=== PATIENT | female | born 2000 | race Caucasian/White ===

== ENCOUNTER 2024-09-11 16:11 | Emergency (ER) | payer MEDICAID, SELFPAY ==
[2024-09-11 16:12] VITALS: BMI 31.7
--- NOTE | 2024-09-11 16:13 | EKG_ITS ---
[facility] [place] [facility] Test Date: 2024-09-11 Pat Name: ENA DIETZ Department: Room: - Gender: Female [employer]: : 2000 Requested By: ED Temporary Provider Order Number: [id number] Reading MD: ED Temporary Provider Measurements Intervals [place] Rate: 76 P: 47 IN: 140 QRS: 60 QRSD: 86 T: 37 QT: 344 QTc: 388 Interpretive Statements SINUS RHYTHM WITH SINUS ARRHYTHMIA MODERATE T-WAVE ABNORMALITY, CONSIDER ANTERIOR ISCHEMIA [-0.1+ mV T-WAVE IN V3/V4] No previous ECG available for comparison /store/S0/[id number].pdf
[2024-09-11 16:28] VITALS: BP 101/70; PULSE 72; RESP 16; TEMP 37.1; O2SAT 97
--- NOTE | 2024-09-11 16:59 | XR_ITS ---
Examination: PA lateral chest 2 views. TECHNIQUE: Upright PA and lateral chest 2 views. Date and time: August 22, 2024, 1705 hours INDICATIONS: Cardiac palpitations beginning 2 days ago. FINDINGS: Normal heart size. Lungs are clear. The osseous structures are intact IMPRESSION: No active disease.
--- NOTE | 2024-09-11 17:00 | PD.EDRME ---
Rapid Medical Screening Exam RME Arrival date/time: 09/11/24 16:11 This is a 24-year-old female with complaints of rapid heartbeat and palpitations prior to arrival. Patient states that she felt her heart and it was beating very fast. Patient states it comes and goes. Patient denies any shortness of breath. Patient denies any drug use alcohol use and only drinks coffee. I have greeted and performed a focused initial assessment of this patient. Initial appropriate labs ordered at this time. A comprehensive ED assessment and evaluation of the patient and analysis of all test and completion of medical decision making process will be conducted by additional ED provider. Chief Complaint: Arrhythmia/Palpitations Time Seen by Provider: 09/11/24 16:18 Vital signs: Vital Signs Temperature 98.7 F 09/11/24 16:28 Pulse Rate 72 09/11/24 16:28 Respiratory Rate 16 09/11/24 16:28 Blood Pressure 101/70 09/11/24 16:28 Pulse Oximetry (%) 97 09/11/24 16:28 Oxygen Delivery Method Room Air 09/11/24 16:28
[2024-09-11 17:49] LABS: Basophils # (Auto) 0.1 Thou/mm3 (0.0-0.2); Basophils % (Auto) 1 % (0-2.5); Eosinophils # (Auto) 0.2 Thou/mm3 (0.0-0.5); Eosinophils % (Auto) 2 % (0-10); Hematocrit 38.8 % (36.0-46.0); Hemoglobin 13.1 g/dL (12.0-16.0); Immature Granulocytes % (Auto) 1 % (0-0); Immature Granulocytes Auto 0.07 Thou/mm3 (0.00-0.00); Lymphocytes # (Auto) 3.1 Thou/mm3 (1.0-4.8); Lymphocytes % (Auto) 35 % (10-50); Mean Corpuscular HGB Conc 33.8 g/dl (31.0-37.0); Mean Corpuscular Hemoglobin 28.7 pg (25.0-35.0); Mean Corpuscular Volume 85 fL (80-100); Monocytes # (Auto) 0.8 Thou/mm3 (0.0-0.8); Monocytes % (Auto) 9 % (0-12); Neutrophils # (Auto) 4.5 Thou/mm3 (1.8-7.7); Neutrophils % (Auto) 52 % (37-80); Nucleated Red Blood Cell % 0 /100 WBC (0); Platelet Count 292 Thou/mm3 (140-440); RDW Standard Deviation 42.3 fL (36.4-46.3); Red Blood Count 4.57 Miln/mm3 (4.00-5.20); White Blood Count 8.8 Thou/mm3 (3.6-11.0)
[2024-09-11 17:59] LABS: Collection Type, Urine Voided
[2024-09-11 18:06] LABS: Bilirubin,Urine Negative (Negative); Blood,Urine Negative (Negative); Clarity,Urine Clear (Clear/Hazy); Color,Urine Lt-Yellow (Lt Yel-Yel); Culture Indicated,Urine Not Indicated; Glucose, Urine Negative (Negative); Ketones,Urine Negative (Negative); Leukocyte Esterase,Urine Negative (Negative); Nitrite,Urine Negative (Negative); Protein,Urine Negative (Neg - Trace); RBC,Urine 3 /hpf (0-3); Specific Gravity,Urine 1.025 (1.001-1.035); Squamous Epithelial Cell,Urine 1 /hpf (0-5); Urobilinogen,Urine Negative mg/dL (0.0-1.0); WBC,Urine 1 /hpf (0-5)
[2024-09-11 18:09] LABS: Alanine Aminotransferase 23 U/L (10-49); Albumin, Serum 4.4 gm/dL (3.5-5.0); Albumin/Globulin Ratio 1.5 (1.2-2.2); Alkaline Phosphatase 72 U/L (46-116); Anion Gap 5 (7-16); Aspartate Amino Transferase 20 U/L (0-34); BUN/Creatinine Ratio 12 Ratio (12-20); Bilirubin,Total 0.3 mg/dL (0.3-1.2); Blood Urea Nitrogen 11 mg/dL (9-23); Calcium 9.3 mg/dL (8.3-10.6); Calcium (Corrected) 9.3 mg/dL (8.5-10.1); Chloride 107 mMol/L (98-107); Creatinine (Component) 0.9 mg/dL (0.6-1.3); Estimated Creatinine Clearance 99.3 mL/min (>60); Globulin 2.9 gm/dL (2.3-3.5); Glucose 97 mg/dL (74-106); Osmolality,Calculated 278 (275-295); Sodium 140 mMol/L (136-145); Thyroid Stimulating Hormone 1.57 uIU/mL (0.55-4.78); Total Protein 7.3 gm/dL (5.7-8.2); Troponin I < 0.002 ng/mL (0.0-0.045); eGFR > 60 See Note
[2024-09-11 18:09] LABS: HCG Qualitative,Urine Negative
[2024-09-11 19:03] LABS: Amphetamine/Methamp Scrn,U Negative (Negative); Barbiturate Screen,Urine Negative (Negative); Benzodiazepines Screen,Urine Negative (Negative); Benzoylecgonine Screen, Ur Negative (Negative); Fentanyl Screen,Urine Negative (Negative); Opiate Screen,Urine Negative (Negative); THC Screen,Urine Negative (Negative)
[2024-09-11 19:54] VITALS: RESP 16
--- NOTE | 2024-09-11 19:58 | PD.EDARRY ---
ED Arrhythmia Palp. RME/HPI General Chief Complaint: Arrhythmia/Palpitations Stated Complaint: PALPITATIONS ON/OFF SINCE LAST NIGHT Time Seen by Provider: 09/11/24 16:18 Arrival date/time: 09/11/24 16:11 RME / HPI RME / HPI narrative: 09/11/24 16:11 This is a 24-year-old female with complaints of rapid heartbeat and palpitations prior to arrival. Patient states that she felt her heart and it was beating very fast. Patient states it comes and goes. Patient denies any shortness of breath. Patient denies any drug use alcohol use and only drinks coffee. I have greeted and performed a focused initial assessment of this patient. Initial appropriate labs ordered at this time. A comprehensive ED assessment and evaluation of the patient and analysis of all test and completion of medical decision making process will be conducted by additional ED provider. DR DIAS MAIN ED EVALUATION: 24 y/o female presents to ED c/o intermittent heart palpitations x 24 hours. Denies smoking, but admits to coffee consumption every day for several years. Patient denies chest pain, shortness of breath, lightheadedness, headache or any other associated symptoms or aggravating factors. No modifying factors, no radiation, no migration. No pain reported overall. Related Data Allergies Allergy/AdvReac Type Severity Reaction Status Date / Time No Known Allergies Allergy Verified 09/11/24 16:13 Review of Systems Review of Systems Systems Reviewed: All systems reviewed, normal except as documented Past Medical History Social History SMOKING STATUS: Never smoker ED Exam Narrative Physical exam: GENERAL APPEARANCE: alert and oriented x 4, well-developed, well-nourished, no acute distress VITALS: All vitals were reviewed and the pulse ox is 97% on room air, which is normal according to my interpretation. HEENT: Normocephalic, atraumatic; pupils equal, round, reactive to light; EOMI; mucous membranes pink, moist; oropharynx clear NECK: Supple LUNGS: CTABL; no wheezes, no rales, no rhonchi HEART: Regular rate, regular rhythm; normal S1, S2; no murmurs ABDOMEN: non distended; normal BS; soft, no tenderness, no guarding, no rebound; no masses, no organomegaly, no hernia BACK: no CVA tenderness EXTREMITIES: atraumatic; no edema NEUROLOGIC: awake; alert and oriented x4; cranial nerves II-XII grossly intact; no focal sensory or motor deficits PSYCHIATRIC: appropriate mood and affect SKIN: warm, dry, normal color; no rashes Course Course Course Narrative: CXR is ordered for determining the etiology of shortness of breath. Quality Measures none Orders Category Date Time Status EKG (ED ONLY) *Do not use* NOW Care 09/11/24 16:13 Completed EKG (ED Only) Stat Exams 09/11/24 16:13 Draft XR chest 2V Stat Exams 09/11/24 16:59 Completed CBC Stat Lab 09/11/24 17:39 Completed Comprehensive Metabolic Panel Stat Lab 09/11/24 17:39 Completed Drug Screen,Urine Stat Lab 09/11/24 17:45 Completed HCG Qualitative,Urine Stat Lab 09/11/24 17:45 Completed TSH [Thyroid Stimulating Hormone] Stat Lab 09/11/24 17:39 Completed Troponin I Stat Lab 09/11/24 17:39 Completed Urinalysis, C/S if Indicated Stat Lab 09/11/24 17:45 Completed Vital Signs Vital signs: Vital Signs Temperature 98.7 F 09/11/24 16:28 Pulse Rate 72 09/11/24 16:28 Respiratory Rate 16 09/11/24 16:28 Blood Pressure 101/70 09/11/24 16:28 Pulse Oximetry (%) 97 09/11/24 16:28 Oxygen Delivery Method Room Air 09/11/24 16:28 Arrhythmia/Palpitations MDM Narrative MDM Narrative:: Scribe Attestation: IShiela, am scribing for and in the presence of Dr. Dias. Provider Notation: Although this document has been carefully reviewed, there may still be some phonetic and other typographical errors.? These errors are purely grammatical due to imperfections in the software program and should not be construed in any way to? compromise the substance of the patient's medical care during this visit. Patient data External records reviewed:: [facility] previous records (No prior ED record available for review.) Clinical information provided by:: patient Social determinants that could affect healthcare access:: other (specify) (Caffeine) Patient has the following chronic illnesses:: None reported How is presenting disease/condition affected by chronic disease/condition?: no chronic disease Evaluation data The following diagnostics were reviewed and interpreted by me:: lab results, radiology exam(s) and EKG tracing(s) (1627: EKG manual reading, my interpretation: sinus rhythm, rate: 76 bpm, T-wave inversions in V1-V3, mild flattening of ST segments in III and V4, no acute ischemic changes.) Lab and/or radiology exams considered but not ordered:: None Interpretation Summary: RADIOLOGY Chest X-Ray: Patient: ENA DIETZ. Record#: [id number] Birthdate: 2000 Age/Sex: 24 / F Location: [facility] Attending Dr: Ordering Physician: Luba Mcintosh NP Date of Service: 09/11/24 Procedure(s): XR chest 2V Accession Number(s): [id number] cc: Grey Morrison MD; Luba Mcintosh NP; Gisela Reilly PA-C~ Examination: PA lateral chest 2 views. TECHNIQUE: Upright PA and lateral chest 2 views. Date and time: August 22, 2024, 1705 hours INDICATIONS: Cardiac palpitations beginning 2 days ago. FINDINGS: Normal heart size. Lungs are clear. The osseous structures are intact IMPRESSION: No active disease. Dictated By: Grey Morrison MD Signed By: <Electronically signed by Grey Morrison MD in OV> 09/11/24 1811 Medications / Prescriptions Medications or Prescriptions considered but not ordered:: None Medication administrations:: See above Consultations Consultation(s) initiated? (list below): No Diagnosis Differential diagnosis arrhythmia/palpitations: palpitations, anxiety, sinus tachycardia, artial fibrillation, artial flutter, ventricular premature beats, supraventricular tachycardia, ventricular tachycardia and WPW Most likely diagnosis given after review of the tests above:: Palpitations Admission Indicated Admission indicated?: not indicated Explain why admission is indicated or not indicated:: Patient does not meet admission criteria. Admission Request Was there a request for admission?: No Disposition Plan Disposition Plan: Discharge Discharge Attestation Discharge Attestation: The patient and all family members were given an opportunity to ask questions and understood the discharge instructions. Discharge instructions specifically effects, indications for sooner follow up or return to the emergency department, and the expected course of current diagnosis. Patient condition: Stable Discharge Plan Plan Patient Disposition: HOME (Self Care) Prescriptions/Referrals Referrals: Gisela Reilly PA-C [Primary Care Provider] - In 1 week Problem List Clinical Impression: Palpitations Patient/Caregiver Discharge Instructions Education Materials: ED Palpitations Print Language: Tristanian Stand Alone Forms: Anupama Award Info., Patient Portal Info Letter
== END 2024-09-11 19:55 | disposition home or self-care (01) ==
PROVIDERS: Nurse Practitioner Family; Emergency Provider Emergency Medicine; PCP Physician Assistant
DX: R00.2 Palpitations (principal); R94.31 Abnormal electrocardiogram [ECG] [EKG]
CPT/HCPCS: 36415; 71046; 80053; 80307; 81001; 81025; 84443; 84484; 85025; 93005; 99283